=== PATIENT | female | born 1930 | race Caucasian/White ===

== ENCOUNTER 2016-02-08 11:58 | Emergency (ER) ==
[2016-02-08 12:06] VITALS: BP 119/61; TEMP 100.1; BMI 29.2
--- NOTE | 2016-02-08 12:18 | ED.PDOC ---
General ED Provider: Dr. HOLLY MACKEY-ER Chief Complaint: Cough Stated Complaint: shes got head congestion and cough Time Seen by Physician: 12:00 Mode of Arrival: Wheelchair Information Source: Patient Exam Limitations: No limitations Primary Care Provider: IGNACIA PATEL Nursing and Triage Documentation Reviewed and Agree: Yes Respiratory Complaint Exam - Respiratory Complaint/Exam Onset/Duration: 7 daus Symptoms Are: Still present Timing: Intermittent Initial Severity: Moderate Location: Nose, Chest Character: Reports: Productive cough Aggravating: Reports: URI Alleviating: Reports: None Associated Signs and Symptoms: Reports: URI, Nasal congestion. Denies: Rapid breathing, Dyspnea, Fever, Chills, Chest pain, Pleuritic chest pain, Wheezing, Hemoptysis, Dizziness, Calf pain, Calf swelling, Edema, Hoarseness, Sinus discomfort, Vomiting, Sore throat, Weight loss, Decreased oral intake, Increased thirst, Increased appetite History of Healthcare-Acquired Pneumonia: No Related Surgical History: Reports: None Pulmonary Embolism Risk Factors: None Pseudomonas Risk Factors: Reports: None Tuberculosis Risk Factors: Reports: None Status Asthmaticus Risk Factors: Reports: None Home Oxygen Use: No Recent Stress Test: No Recent Echo/LV Function: No Current Antibiotic Use: No Current Asthma Medication Use: No Respiratory Distress: None Inadequate Respiratory Effort: No Dysphagia Present: No Stridor Present: No JVD Present: No Accessory Muscle Use: No Retractions: Not Present Diminished Breath Sounds: No Sinus Tenderness: None Grunting Respirations: No Kussmaul Respirations: No Differential Diagnoses: Pneumonia, Bronchitis, Sinusitis, URI Review of Systems - Review Of Systems Constitutional: Reports: No symptoms Eyes: Reports: No symptoms Ears, Nose, Mouth, Throat: Reports: Nose discharge Respiratory: Reports: Cough Cardiac: Reports: No symptoms GI: Reports: No symptoms : Reports: No symptoms Musculoskeletal: Reports: No symptoms Skin: Reports: No symptoms Neurological: Reports: No symptoms Endocrine: Reports: No symptoms Hematologic/Lymphatic: Reports: No symptoms All Other Systems: Reviewed and Negative Past Medical History - Past Medical History Endocrine: Reports: Unknown Cardiovascular: Reports: Unknown Respiratory: Reports: Unknown Hematological: Reports: Unknown Gastrointestinal: Reports: Unknown Genitourinary: Reports: Unknown Neuro/Psych: Reports: Unknown Musculoskeletal: Reports: Unknown Cancer: Reports: Unknown Last Menstrual Period: n/a - Surgical History General Surgical History: Reports: Unknown - Family History Family History: Reports: Unknown - Social History Smoking Status: Former smoker Hx Substance Use: No Alcohol Screening: None Lives: With family - Immunizations Tetanus Shot up to Date: Yes Physical Exam - Physical Exam Appearance: Well-appearing, No pain distress, Well-nourished Eyes: HAYLEY, EOMI, Conjunctiva clear ENT: Rhinorrhea Respiratory: Rhonchi Cardiovascular: RRR GI/: Soft, Nontender, No masses, Bowel sounds normal, No Organomegaly Musculoskeletal: Normal strength, ROM intact, No edema, No calf tenderness Skin: Warm, Dry, Normal color Neurological: Sensation intact, Motor intact, Reflexes intact, Cranial nerves intact, Alert, Oriented Psychiatric: Affect appropriate, Mood appropriate Critical Care Note - Critical Care Note Total Time (mins): 0 Course - Course Orders, Labs, Meds: Lab Review 02/08/16 12:10 Influenza A (Rapid) Negative Influenza B (Rapid) Negative Orders Category Date Time Status FLU A & B RAPID TEST [RAPID FLU A/B] Stat LAB 02/08/16 12:10 Completed MOLECULAR GROUP A STREP Stat LAB 02/08/16 12:10 Results STREP SCREEN Stat LAB 02/08/16 12:10 Results Ceftriaxone Sodium [Rocephin] MEDS 02/08/16 12:28 Discontinued 1 gm IM ONCE STA Dexamethasone 4 mg/ml Inj [Decadron 4 mg/ml Sdv] MEDS 02/08/16 12:28 Discontinued 4 mg IM ONCE STA Lidocaine HCl/Pf [Lidocaine 1 % Amp 5 ml (Sutures)] MEDS 02/08/16 12:28 Discontinued 2.1 ml IM ONCE STA CXR [CHEST, 2 VIEWS PA & LAT] Stat RADS 02/08/16 12:10 Taken Medications Discontinued Medications Generic Name Dose Route Start Last Admin Trade Name Freq PRN Reason Stop Dose Admin Ceftriaxone Sodium 1 gm 02/08/16 12:28 Rocephin IM 02/08/16 12:29 ONCE STA Dexamethasone Sodium Phosphate 4 mg 02/08/16 12:28 Decadron 4 Mg/Ml Sdv IM 02/08/16 12:29 ONCE STA Lidocaine HCl 2.1 ml 02/08/16 12:28 Lidocaine 1 % Amp 5 Ml (Sutures) IM 02/08/16 12:29 ONCE STA Vital Signs: Temp Pulse Resp BP Pulse Ox 02/08/16 11:58 100.1 F H 96 H 20 119/61 92 L Departure - Departure Time of Disposition: 12:36 Disposition: HOME SELF-CARE Discharge Problem: Bronchitis Instructions: Acute Bronchitis (ED) Condition: Good Pt referred to PMD for follow-up: Yes Additional Instructions: AUGMENTIN 875MG BID X 10 DAYS--MEDROL DOSE PACK--TESSALON PERLES 200MG TID PRN COUGH 30 Allergies/Adverse Reactions: Allergies adhesive Adverse Reaction (Verified 02/08/16 12:08) clarithromycin [From Biaxin] Adverse Reaction (Verified 02/08/16 12:08) Home Medications: Ambulatory Orders Dicyclomine HCl [Bentyl] 10 mg PO TID 05/02/13 Diphenoxylate HCl/Atropine [Lomotil] 0.025 - 2.5 mg PO QID PRN 05/02/13 Lisinopril 10 mg PO BID 05/02/13 Lorazepam 1 mg PO TID 05/02/13 Meclizine HCl [Antivert] 12.5 mg PO PRN PRN 05/02/13 Omeprazole [Prilosec] 10 mg PO BEDTIME 05/02/13 Ondansetron HCl [Zofran] 4 mg PO Q6H PRN 05/02/13 Potassium Chloride [K-Dur] 10 meq PO DAILY #30 tablet.er 05/05/13 Spironolactone 25 mg PO DAILY #30 tablet 05/05/13 Calcium Carbonate [Calcium] 600 mg PO DAILY 05/27/14 Cholecalciferol (Vitamin D3) [Vitamin D3] 1,000 unit PO DAILY 05/27/14 Latanoprost [Xalatan] 1 drop OP BEDTIME 05/27/14 Multivitamin 1 cap PO DAILY 05/27/14 Pantoprazole Sodium [Protonix] 40 mg PO QDAC 05/27/14 Psyllium Husk [Metamucil] 0.52 gm PO DAILY 05/27/14 Zolpidem Tartrate [Ambien] 5 mg PO BEDTIME 05/27/14 Disposition Discussed With: Patient, Family
[2016-02-08] MEDS ORDERED: LIDOCAINE 1 % AMP 5 ML (SUTURES) IM STA (12:28)
[2016-02-08] MEDS ORDERED: DECADRON 4 MG/ML SDV IM STA (12:28)
[2016-02-08] MEDS ORDERED: ROCEPHIN IM STA (12:28)
[2016-02-08 12:33] LABS: FLU INTERNAL QC INTERNAL QC VALID; RAPID FLU A NEGATIVE (NEGATIVE); RAPID FLU B NEGATIVE (NEGATIVE)
--- NOTE | 2016-02-08 13:02 | DI ---
EXAM: PA and lateral views of the chest HISTORY: Cough COMPARISON: 01/13/2016 FINDINGS: The lungs are hyperexpanded. There is unchanged mild biapical pleural thickening. No focal consoli dation, pleural effusion or pneumothorax is seen. A right mid lung calcified granuloma is seen. The cardiomediastinal silhouette is within normal limits. There is calcified atherosclerotic plaque of the aorta. IMPRESSION: No acute cardiopulmonary findings. Hyperexpanded lungs. Evidence of prior granulomatous infection.
== END 2016-02-08 13:11 | disposition home or self-care (01) ==
LOC: ED 11:58
DX: J20.9 Acute bronchitis, unspecified (principal)
CPT/HCPCS: 87651; 87804; 87880; 96372; 99283

== ENCOUNTER 2016-04-22 10:41 | Outpatient (CLI) | payer OTHER ==
[2016-04-22] MEDS ORDERED: PROLIA SUBCUT STA (11:03)
[2016-04-22 11:16] VITALS: BP 118/65; TEMP 99.2
== END 2016-04-22 10:42 | disposition home or self-care (01) ==
LOC: OPMED 10:41
PROVIDERS: ATTEND Family Medicine
DX: M81.0 Age-related osteoporosis without current pathological fracture (principal)
CPT/HCPCS: 96372

== ENCOUNTER 2016-07-12 12:56 | Outpatient (CLI) ==
--- NOTE | 2016-07-14 10:29 | MAMMO ---
EXAM: Bilateral digital screening mammogram History: Screening Comparison: Bilateral mammogram 62,016 Findings: MLO and CC views of bilateral breasts demonstrate scattered fibroglandular breast parench yma. Stable benign bilateral breast calcifications. There is a focal asymmetry within the right philip ast central to the nipple posterior depth and seen only on the CC view. No suspicious microcalcific ations. Impression: Indeterminate right breast asymmetry seen only on the CC view. Recommend further evalua tion with spot compression views and a ML view and possible ultrasound. BIRADS 0
== END 2016-07-12 12:57 | disposition home or self-care (01) ==
LOC: RAD 12:56
PROVIDERS: ATTEND Family Medicine
DX: Z12.31 Encounter for screening mammogram for malignant neoplasm of breast (principal)

== ENCOUNTER 2016-07-21 09:25 | Outpatient (CLI) | payer OTHER ==
--- NOTE | 2016-07-21 10:43 | MAMMO ---
EXAM: Right digital diagnostic mammogram History: Right breast asymmetry. Comparison: Bilateral mammogram 07/12/2016 Findings: Right breast density is scattered. Additional spot compression views of the right breast reveal normal superimposed breast parenchyma. There are no suspicious masses and no abnormal micro calcifications. Impression: Benign mammogram. Return to routine screening mammography schedule. BIRADS 2
== END 2016-07-21 09:26 | disposition home or self-care (01) ==
LOC: RAD 09:25
PROVIDERS: ATTEND Family Medicine
DX: R92.2 Inconclusive mammogram (principal)

== ENCOUNTER 2016-08-27 12:03 | Emergency (ER) ==
[2016-08-27 12:11] VITALS: BP 146/75; TEMP 97.9
[2016-08-27] MEDS ORDERED: URO-JET MUCOUSMEMB STA (12:29)
--- NOTE | 2016-08-27 12:58 | ED.PDOC ---
General ED Provider: Dr. ARIELLE BRUNO JR Chief Complaint: Urinary Problem Stated Complaint: STATES HAS NOT BEEN URINIATING MUCH USUAL FOR PAST WEEK. LAST TIME OF URINATION WAS LAST NIGHT. SUPRAPUBIC PAIN. [ End ]97.9 59 18 96% 146/75 8/10 Time Seen by Physician: 12:57 Mode of Arrival: Wheelchair Information Source: Patient Exam Limitations: No limitations Primary Care Provider: IGNACIA PATEL Nursing and Triage Documentation Reviewed and Agree: No Review of Systems - Review Of Systems Constitutional: Reports: Malaise Eyes: Reports: No symptoms Ears, Nose, Mouth, Throat: Reports: No symptoms Respiratory: Reports: No symptoms Cardiac: Reports: No symptoms GI: Reports: No symptoms : Reports: Burning, Dysuria, Urgency Musculoskeletal: Reports: No symptoms Skin: Reports: No symptoms Neurological: Reports: No symptoms Endocrine: Reports: No symptoms Hematologic/Lymphatic: Reports: No symptoms All Other Systems: Other Past Medical History - Past Medical History Endocrine: Reports: Unknown Cardiovascular: Reports: Hypertension Respiratory: Reports: Unknown Hematological: Reports: Unknown Gastrointestinal: Reports: GERD Genitourinary: Reports: UTI Neuro/Psych: Reports: Unknown Musculoskeletal: Reports: Arthritis Cancer: Reports: Unknown Last Menstrual Period: NA - Surgical History General Surgical History: Reports: Hysterectomy, Appendectomy, Cholecystectomy, Orthopedic (FRACTURE BOTH FEET, RIGHT ANKLE FRACTURE), Other (CATARACT SURGERY BOTH EYES) - Family History Family History: Reports: Unknown - Social History Smoking Status: Former smoker Hx Substance Use: No Alcohol Screening: None Physical Exam - Physical Exam Appearance: Ill-appearing Ill-appearing: Mild Pain Distress: Mild Neck: Supple Respiratory: Airway patent GI/: Soft, Nontender Neurological: Sensation intact, Motor intact, Reflexes intact, Cranial nerves intact, Alert, Oriented Re-Evaluation - Re-Evaluation Time of Re-Evaluation: 14:57 (850+500CC) Status: Improved Critical Care Note - Critical Care Note Total Time (mins): 0 Course - Course Orders, Labs, Meds: Lab Review 08/27/16 12:40 Urine Color Dark Urine Clarity Cloudy Urine pH 7.0 Ur Specific [place] 1.020 Urine Protein 2+ Urine Glucose (UA) Negative Urine Ketones Negative Urine Blood 3+ Urine Nitrite Negative Urine Bilirubin Negative Urine Urobilinogen 0.2 Ur Leukocyte Esterase Trace Urine Microscopic RBC Tntc Urine Microscopic WBC Tntc Ur Squamous Epith Cells Not present Urine Bacteria 1+ Orders Category Date Time Status ED BLADDER SCAN .ONCE EMERGENCY 08/27/16 12:29 Active Robin [ED CATHETER INSERTION AND CARE] .ONCE EMERGENCY 08/27/16 12:29 Active URINALYSIS C & S IF INDICATED Stat LAB 08/27/16 12:40 Completed URINE CULTURE Routine LAB 08/27/16 13:29 Received Lidocaine HCl [Uro-Jet] MEDS 08/27/16 12:29 Discontinued 10 ml [id number] ONCE STA Sulfamethoxazole/Trimethoprim [Bactrim Ds 800/160 mg] MEDS 08/27/16 13:57 Discontinued 1 tab PO ONCE STA Medications Discontinued Medications Generic Name Dose Route Start Last Admin Trade Name Freq PRN Reason Stop Dose Admin Lidocaine HCl 10 ml 08/27/16 12:29 08/27/16 12:55 Uro-Jet [email or web address] 08/27/16 12:30 Not Given ONCE STA Trimethoprim/Sulfamethoxazole 1 tab 08/27/16 13:57 08/27/16 14:12 Bactrim Ds 800/160 Mg PO 08/27/16 13:58 1 tab ONCE STA Administration Vital Signs: Temp Pulse Resp BP Pulse Ox 08/27/16 12:07 97.9 F 59 L 18 146/75 H 96 Departure - Departure Time of Disposition: 15:00 Disposition: HOME SELF-CARE Discharge Problem: Urinary tract infectious disease Instructions: Urinary Tract Infection in Women (ED) Condition: Good Pt referred to PMD for follow-up: Yes Additional Instructions: RETURN TOMORROW FOR REMOVAL OF CATHETER ANTIBIOTIC UNTIL GONE BACTRIM ANTIBIOTIC- DO NOT TAKE POTASSIUM WITH BACTRIM(HOLD POTASSIUM EACH DAY YOU TAKE BACTRIM) DRINK PLENTY OF FLUIDS TYLENOL FOR PAIN PYRIDIUM FOR BLADDER DISCOMFORT Allergies/Adverse Reactions: Allergies adhesive Adverse Reaction (Verified 08/27/16 12:06) clarithromycin [From Biaxin] Adverse Reaction (Verified 08/27/16 12:06) Latex, Natural Rubber Adverse Reaction (Verified 08/27/16 12:06) Home Medications: Ambulatory Orders Lisinopril 10 mg PO BID 05/02/13 Lorazepam 1 mg PO TID 05/02/13 Meclizine HCl [Antivert] 12.5 mg PO PRN PRN 05/02/13 Ondansetron HCl [Zofran] 4 mg PO Q6H PRN 05/02/13 Potassium Chloride [K-Dur] 10 meq PO DAILY #30 tablet.er 05/05/13 Spironolactone 25 mg PO DAILY #30 tablet 05/05/13 Calcium Carbonate [Calcium] 600 mg PO DAILY 05/27/14 Cholecalciferol (Vitamin D3) [Vitamin D3] 1,000 unit PO DAILY 05/27/14 Latanoprost [Xalatan] 1 drop OP BEDTIME 05/27/14 Multivitamin 1 cap PO DAILY 05/27/14 Pantoprazole Sodium [Protonix] 40 mg PO QDAC 05/27/14 Fluoxetine HCl [Prozac] 20 mg PO DAILY 08/27/16 Gabapentin 200 mg PO DAILY 08/27/16 Gabapentin 300 mg PO BEDTIME 08/27/16 Metoprolol Tartrate [Lopressor] 25 mg PO BID 08/27/16 Phenazopyridine HCl [Pyridium] 200 mg PO TID PRN #10 tablet 08/27/16 Sulfamethoxazole/Trimethoprim [Bactrim Ds 800/160 mg] 1 tab PO Q12HR #14 tablet 08/27/16
[2016-08-27 13:11] LABS: BILIRUBIN,URINE Negative (NEGATIVE); KETONES,URINE Negative (NEGATIVE); LEUKOCYTE ESTERASE ,URINE Trace (NEGATIVE); NITRITE,URINE Negative (NEGATIVE); PROTEIN,URINE 2+ (NEGATIVE); URINE, BLOOD 3+ (NEGATIVE)
[2016-08-27 13:15] LABS: ADD URINE MICROSCOPIC YES
[2016-08-27 13:29] LABS: BACTERIA,URINE 1+ (NOT PRESENT)
[2016-08-27] MEDS ORDERED: BACTRIM DS 800/160 MG PO STA (13:57)
== END 2016-08-27 15:27 | disposition home or self-care (01) ==
LOC: ED 12:03
DX: N39.0 Urinary tract infection, site not specified (principal); Z79.899 Other long term (current) drug therapy; M25.512 Pain in left shoulder
CPT/HCPCS: 81001; 87086; 87186; 99282

== ENCOUNTER 2016-08-27 15:24 | Outpatient (CLI) ==
--- NOTE | 2016-08-27 15:48 | DI ---
EXAM: Left shoulder three view HISTORY: Chronic shoulder pain COMPARISON: None FINDINGS: No fracture or dislocation. Mild osteoarthritis acromioclavicular glenohumeral joints wi th joint space narrowing osteophyte formation. High-riding humeral head. No focal soft tissue abnor mality. IMPERSSION: 1. No fracture or dislocation. 2. Mild osteoarthritis. 3. High-riding humeral head, suggesting rotator cuff tear.
== END 2016-08-27 15:25 | disposition home or self-care (01) ==
LOC: RAD 15:24
PROVIDERS: ATTEND Family Medicine
DX: M25.512 Pain in left shoulder (principal)

== ENCOUNTER 2016-08-28 10:49 | Outpatient (CLI) ==
[2016-08-28 11:14] VITALS: BP 102/55; TEMP 98.3
== END 2016-08-28 10:50 | disposition home or self-care (01) ==
LOC: OUTPT 10:49
PROVIDERS: ATTEND Emergency Medicine
DX: N39.0 Urinary tract infection, site not specified (principal); R33.9 Retention of urine, unspecified
CPT/HCPCS: 99211

== ENCOUNTER 2016-09-08 11:02 | Outpatient (CLI) ==
--- NOTE | 2016-09-08 11:48 | CT ---
EXAM: CT of the head without contrast History: Gait difficulty and trauma. Comparison: Head CT 06/29/2014 Technique: Multiplanar CT images through the head were obtained without the administration of IV co ntrast Findings: Visualized paranasal sinuses and mastoid air cells are clear in general. No acute calvar ial abnormalities. Intracranially the ventricular and cisternal spaces are normal in size, shape and configuration for a patient of this age. No dominant mass or midline shift. No hydrocephalous. No acute intracrania l hemorrhage or abnormal extraaxial fluid collections. Impression: No acute intracranial process.
== END 2016-09-08 11:03 | disposition home or self-care (01) ==
LOC: RAD 11:02
PROVIDERS: ATTEND Family Medicine
DX: R26.9 Unspecified abnormalities of gait and mobility (principal); W19.XXXA Unspecified fall, initial encounter

== ENCOUNTER 2016-09-25 13:51 | Outpatient (CLI) | payer OTHER | END 2016-09-25 13:52 | disposition home or self-care (01) | LOC: AMBL 13:51 | PROVIDERS: ATTEND Family Medicine | DX: S09.90XA Unspecified injury of head, initial encounter (principal); W19.XXXA Unspecified fall, initial encounter ==

== ENCOUNTER 2016-11-04 10:51 | Outpatient (CLI) ==
[2016-11-04] MEDS ORDERED: PROLIA SUBCUT STA (11:25)
[2016-11-04 11:29] VITALS: BP 116/57; TEMP 98.2
== END 2016-11-04 10:52 | disposition home or self-care (01) ==
LOC: OPMED 10:51
PROVIDERS: ATTEND Family Medicine
DX: M81.0 Age-related osteoporosis without current pathological fracture (principal)
CPT/HCPCS: 96372

== ENCOUNTER 2017-05-05 13:00 | Outpatient (RCR) ==
--- NOTE | 2017-04-20 11:35 | RS.OPPTEV2 ---
Date of Note: 04/19/17 Visit #: 1 Date of Evaluation: 04/19/17 Payer Source: MEDICARE Surgery Performed?: No Treatment Diagnosis: OA, gait difficulty, falls History of Condition/Mechanism of Injury:: pt states that she has had a long history of OA and falls, most recent fall was this winter. Prior Level of Function.....Patient was independent with: ADL's, Self Care, Work /Vocation, Ambulation/Mobility, Community Integration/Access Level of Function: pt states she amb with quad cane or rwx Functional Limitations: ADL's, Carrying, Standing, Bending, Squatting, Ambulation, Community Access/Integration Current Subjective/complaints:: pt states that she feels that her LE are weak and decreased balance with pain from OA. Treatment Side (optional): Bilateral *Precautions: fall precautions Medical History Medical History: Hypertension, Diabetes, Arthritis Surgical History Comments:: rigt ankle fracture with stabilization, R hip repair Smoking Status: Former smoker Hx Home Medications: besifloxacin, calcium car-cholecalciferol, carboxymethylcellulose, durezol, lomotil, prozac, lasix, neurontin, xalatan, lisinopril, lorazepam, meclizine, lopressor, multivitamin, zofran, protonix, k dur, spironolactone, triamcinolone cream. Patient's Goals: be able to walk better and not fall. Pain Assessment - Pain Description Pain Location: B knees and B shlds Pain Description: Aching Current Pain Intensity: 5 Functional Outcome Measure UE Functional Index: 9 (68%) - G Codes & Severity Modifier G Codes & Modifier: mobility current CL. mobility goal CJ Source of G Code score: tinetti balance assessment Observation - Observation Inspection: pt transferred sit to stand with CGA with more than 1 attempt. Posture: Forward Head, Rounded Shoulders, Increased Thoracic Kyphosis, Decreased Lumbar Lordosis Handedness: Right Gait - Gait Pattern General Gait Pattern Observation: Wide Based Gait, Crouched Gait, Decrease Stride Lngth (R), Decrease Stride Lngth (L) Gait Comments: pt amb with flexed posture, decreased step length as well as flexed knees with wide INES General Range of Motion: BLE WFL's. BUE shlds limited: L shld flex 135, abd 100, R shld flex 130, abd 120 otherwise WFL's Muscle Strength: BLE hip flex 4-/5, knee flex/ext 4-/5, ankle DF/PF 4/5. BUE shld flex 3/5, elbow flex/ext 4/5 Palpation Palpation Findings: Tenderness Comments:: B shlds as well as upper trap. BLE hamsting tightness L worse than R Sensation - Sensation Right Upper Extremity: Intact/Normal Left Upper Extremity: Intact/Normal Right Lower Extremity: Intact/Normal Left Lower Extremity: Intact/Normal Balance - Sitting Balance Static Sitting Balance: Normal Dynamic Sitting Balance: Good - Standing Balance Static Standing Balance: Fair Dynamic Standing Balance: Poor - Comments Balance Assessment Comments: tinetti score 11/04 Interventions - Exercise/Activities/Manual Therapy Exercises/Activities: pt performed BLE AP, QS, hamstring stretch, seated hip flex, LAQ, isometric hip add. Manual Therapy: Na HOME EXERCISE PROGRAM: pt given written HEP including AP, QS, hamstring stretch , LAQ, seated hip flex, isometric hip add. - Charges Timed Code Treatment Minutes: 54 Total Treatment Time: 62 Procedures billed for this date of service:: eval med EVALUATION COMPLEXITY LEVEL EVALUATION COMPLEXITY LEVEL: HISTORY: Medium (OA, DM, HTN, age), EXAM OF BODY SYSTEMS: Medium (posture, gait, balance, strength, pain), CLINICAL PRESENTATION : Medium (evolving), CLINICAL DECISION MAKING: Medium Assessment Assessment: pt presents with decreased strength, balance as well as transfer and gait ability. Feel pt would benefit from skilled PT for therex for LE strengthening, balance activities as well as transfer/gait training to improve functional mobility as well as decrease falls. Patient Education: Home Exercise Program, Education of Plan of Care Rehab Potential: Good Short Term Goals Goal #1: pt transfer sit to/from stand independently Goal to be met by: 05/10/17 Goal #2: pt amb in PT dept with rwx with no LOB with improved posture. Goal to be met by: 05/10/17 Goal #3: pt with improved dyn stand balance as noted by tinetti score Goal to be met by: 05/10/17 Goal #4: pt rate pain <5 with activity Goal to be met by: 05/10/17 Traffic Or System Dispatcher Goals Goal #1: pt amb community distances with AD with no LOB SBA Goal to be met by: 05/31/17 Goal #2: Improved strength BLE 4 to 4+/5 independent with HEP Goal to be met by: 05/31/17 Goal #3: Improved dyn stand balance as noted by tinetii score of Goal to be met by: 05/31/17 Goal #4: pt rate pain <2 with activity Goal to be met by: 05/31/17 Plan - Treatment to be Provided Procedures: Therapeutic Exercises, Therapeutic Activity, Gait Training, Neuromuscular Rehab, Patient Education Modalities: No Modalities - Treatment Plan Frequency: 3 X week Duration: 6 weeks ORDER # VISITS AND/OR THROUGH DATE: 05/31/17 - Treatment Code (1) Osteoarthritis Code(s): M19.90 - UNSPECIFIED OSTEOARTHRITIS, UNSPECIFIED SITE Qualifiers: Osteoarthritis location: unspecified site Osteoarthritis type: unspecified Qualified Code(s): M19.90 - Unspecified osteoarthritis, unspecified site (2) Falls Code(s): W19.XXXA - UNSPECIFIED FALL, INITIAL ENCOUNTER Qualifiers: Encounter type: initial encounter Qualified Code(s): W19.XXXA - Unspecified fall, initial encounter (3) Gait difficulty Code(s): R26.9 - UNSPECIFIED ABNORMALITIES OF GAIT AND MOBILITY
--- NOTE | 2017-04-21 16:33 | RS.OPPTDN ---
Subjective Date of Note: 04/21/17 Visit #: 2 Date of Evaluation: 04/19/17 Payer Source: MEDICARE Treatment Diagnosis: OA, gait difficulty, falls Current Subjective/complaints:: pt states she was a little sore after eval visit. *Precautions: fall precautions Pain Assessment - Pain Description Pain Location: B knees L worse than R Pain Description: Aching Current Pain Intensity: 6 on L, 4 on R Balance System Training - Balance Training Comments Worked on dyn stand balance during gait Interventions - Exercise/Activities/Manual Therapy Exercises/Activities: pt performed BLE AP, QS, GS,, SAQ, hip abd/add, seated hip flex x 10 reps. BUE shld flex and press ups with cane x 10 reps. pt amb with quad cane x 50ft with cues for sequencing, posture as well as frequent reminders for placement of cane to prevent tripping. pt amb 100ft with rwx with improved posture with verbal cues to keep R foot from ext rot and catching toe on rwx. Manual Therapy: n/a HOME EXERCISE PROGRAM: pt given written HEP including AP, QS, hamstring stretch , LAQ, seated hip flex, isometric hip add. - Charges Timed Code Treatment Minutes: 42 Total Treatment Time: 55 Procedures billed for this date of service:: ex 2, gait Assessment: pt progressing with improved endurance tolerating increased ex this visit as well as improved posture with gait. Patient Education: Home Exercise Program, Education of Plan of Care Patient demonstrates compliance with HEP?: Yes Short Term Goals Goal #1: pt transfer sit to/from stand independently Goal to be met by: 05/10/17 Progress towards Goal:: Progressing Goal #2: pt amb in PT dept with rwx with no LOB with improved posture. Goal to be met by: 05/10/17 Progress towards Goal:: Progressing Goal #3: pt with improved dyn stand balance as noted by tinetti score Goal to be met by: 05/10/17 Progress towards Goal:: No Change Goal #4: pt rate pain <5 with activity Goal to be met by: 05/10/17 Penitentiary Goals Goal #1: pt amb community distances with AD with no LOB SBA Goal to be met by: 05/31/17 Goal #2: Improved strength BLE 4 to 4+/5 independent with HEP Goal to be met by: 05/31/17 Progress towards goal: Progressing Goal #3: Improved dyn stand balance as noted by tinetii score of 22/28 Goal to be met by: 05/31/17 Goal #4: pt rate pain <2 with activity Goal to be met by: 05/31/17 Plan PLAN OF CARE EXPIRES ON:: 05/31/17 ORDER # VISITS AND/OR THROUGH DATE: 05/31/17 PLAN: continue to progress with dyn stand balance activities as well as LE strengthening.
--- NOTE | 2017-04-26 13:59 | RS.CXNS ---
Date of scheduled appointment: 04/26/17 Type: Cancel (Patient called to cancel appointment today. States she is sick.)
--- NOTE | 2017-04-29 08:55 | RS.OPPTDN ---
Subjective Date of Note: 04/28/17 Visit #: 3 Date of Evaluation: 04/19/17 Payer Source: MEDICARE Treatment Diagnosis: OA, gait difficulty, falls Current Subjective/complaints:: Patient reports she is walking better and using quad cane in community. States she is working on basic HEP. *Precautions: fall precautions Pain Assessment - Pain Description Pain Location: lowback and shoulders, left > right Current Pain Intensity: mild to mod left shoulder pain Interventions - Exercise/Activities/Manual Therapy Exercises/Activities: In sitting, AP, 1 1/2# for SAQ and hip flexion, 2s/10reps each. QS, GS, SAQ, assist SLR, assist hip abd/add, all 2s/10reps. 1 1/2# for alt hip flexion. Isometric hip add and isometric ankle inversion, both with ball , 2s/10reps each. Overhead shoulder flexion and chest press ups with cane x 10 reps. In sitting again for wand for shoulder flexion to shoulder height. Gait training in hallway with quad cane. Patient assisted down ramp to car in parking lot and given several verbal cues for safety. pt amb with quad cane x 50ft with cues for sequencing, posture as well as frequent reminders for placement of cane to prevent tripping. pt amb 100ft with rwx with improved posture with verbal cues to keep R foot from ext rot and catching toe on rwx. Total minutes of Exercise: EX 30mins/gait training 10mins Manual Therapy: n/a HOME EXERCISE PROGRAM: pt given written HEP including AP, QS, hamstring stretch , LAQ, seated hip flex, isometric hip add. - Charges Timed Code Treatment Minutes: 40mins Total Treatment Time: 45mins Procedures billed for this date of service:: EX2, GT Assessment: Patient motivated to work on HEP and progress with safe ambulation and functional moblity. Patient Education: Home Exercise Program, Home Safety, Activity Modification Patient demonstrates compliance with HEP?: Yes Short Term Goals Goal #1: pt transfer sit to/from stand independently Goal to be met by: 05/10/17 Progress towards Goal:: Met Goal #2: pt amb in PT dept with rwx with no LOB with improved posture. Goal to be met by: 05/10/17 Progress towards Goal:: Progressing Goal #3: pt with improved dyn stand balance as noted by tinetti score Goal to be met by: 05/10/17 Progress towards Goal:: No Change Goal #4: pt rate pain <5 with activity Goal to be met by: 05/10/17 Progress towards Goal:: Progressing Tooth Cutter Goals Goal #1: pt amb community distances with AD with no LOB SBA Goal to be met by: 05/31/17 Goal #2: Improved strength BLE 4 to 4+/5 independent with HEP Goal to be met by: 05/31/17 Progress towards goal: Progressing Goal #3: Improved dyn stand balance as noted by tinetii score of Goal to be met by: 05/31/17 Goal #4: pt rate pain <2 with activity Goal to be met by: 05/31/17 Plan PLAN OF CARE EXPIRES ON:: 05/31/17 ORDER # VISITS AND/OR THROUGH DATE: 05/31/17 PLAN: Progress with strengthening and balance activities to improve safety with functional mobility and ambulation.
--- NOTE | 2017-05-03 15:13 | RS.OPPTDN ---
Subjective Date of Note: 05/03/17 Visit #: 4 Date of Evaluation: 04/19/17 Payer Source: MEDICARE Treatment Diagnosis: OA, gait difficulty, falls Current Subjective/complaints:: Patient reports she has not had any falls since starting therapy. States she feels she is getting stronger and is able to do more activities in her home. *Precautions: fall precautions Pain Assessment - Pain Description Other Comments regarding Pain:: Patient reports pain in her left shoulder joint into lateral upper arm Interventions - Exercise/Activities/Manual Therapy Exercises/Activities: In sitting, Shoulder flexion with cane, AP, increased to 3 # for SAQ and hip flexion, 2s/10reps each. QS, GS, SAQ 3#, SLR, all 2s/10reps. Increased to 3# for alt hip flexion. Isometric hip add and isometric ankle inversion, both with ball, 2s/10reps each. Red theraband for ankle df and ham curls, 2s/10reps. Standing mini-squats, toe-ups, and marching. Gait training in hallway with quad cane, verbal cues for safety. Patient assisted to car in parking lot with frequent verbal cues for safety. pt amb with quad cane x 50ft with cues for sequencing, posture as well as frequent reminders for placement of cane to prevent tripping. pt amb 100ft with rwx with improved posture with verbal cues to keep R foot from ext rot and catching toe on rwx. Total minutes of Exercise: EX 35mins, GT 8mins Manual Therapy: n/a HOME EXERCISE PROGRAM: pt given written HEP including AP, QS, hamstring stretch , LAQ, seated hip flex, isometric hip add. - Charges Timed Code Treatment Minutes: 43mins Total Treatment Time: 45mins Procedures billed for this date of service:: EX2, GT Assessment: Patient reporting improvement in functional activity level. Patient Education: Home Exercise Program, Home Safety, Activity Modification Patient demonstrates compliance with HEP?: Yes Short Term Goals Goal #1: pt transfer sit to/from stand independently Goal to be met by: 05/10/17 Progress towards Goal:: Met Goal #2: pt amb in PT dept with rwx with no LOB with improved posture. Goal to be met by: 05/10/17 Comments:: Walking with quad cane today. Goal #3: pt with improved dyn stand balance as noted by tinetti score 14/28 Goal to be met by: 05/10/17 Progress towards Goal:: No Change Goal #4: pt rate pain <5 with activity Goal to be met by: 05/10/17 Progress towards Goal:: Partially Met Care Home Goals Goal #1: pt amb community distances with AD with no LOB SBA Goal to be met by: 05/31/17 Goal #2: Improved strength BLE 4 to 4+/5 independent with HEP Goal to be met by: 05/31/17 Progress towards goal: Progressing Goal #3: Improved dyn stand balance as noted by tinetii score of Goal to be met by: 05/31/17 Goal #4: pt rate pain <2 with activity Goal to be met by: 05/31/17 Plan PLAN OF CARE EXPIRES ON:: 05/31/17 ORDER # VISITS AND/OR THROUGH DATE: 05/31/17 PLAN: Progress exercise and balance activities to increase safety and functional activity level.
--- NOTE | 2017-05-05 16:21 | RS.OPPTDN ---
Subjective Date of Note: 05/05/17 Visit #: 5 Date of Evaluation: 04/19/17 Payer Source: MEDICARE Treatment Diagnosis: OA, gait difficulty, falls Current Subjective/complaints:: pt states she is having increased discomfort in L shld, requested to try moist hot pack. *Precautions: fall precautions Pain Assessment - Pain Description Pain Location: L shld Pain Description: Aching Current Pain Intensity: 4 - Heat/Cryotherapy Treatment: Hot Pack (L shld) Interventions - Exercise/Activities/Manual Therapy Exercises/Activities: pt performed BLE LAQ, hip flex with 3# wt, DF/PF with red tband, isometric hip add 2 sets of 10 reps, standing short squats, heel raises, marching 2 sets of 10 reps. pulleys for B shld flex. pt rode bike x 2 mins. pt amb 100ft with quad cane with CGA with LLE ext rot, requires cues for posture. Total minutes of Exercise: 43 Manual Therapy: n/a HOME EXERCISE PROGRAM: pt given written HEP including AP, QS, hamstring stretch , LAQ, seated hip flex, isometric hip add. - Charges Timed Code Treatment Minutes: 46 Total Treatment Time: 60 Procedures billed for this date of service:: exercise 3, hot pack to L shld Assessment: pt progressing with improved gait safety as well as increased tolerance for activity. pt continues with pain and decreased ROM L shld. Patient Education: Home Exercise Program, Activity Modification, Education of Plan of Care Patient demonstrates compliance with HEP?: Yes Short Term Goals Goal #1: pt transfer sit to/from stand independently Goal to be met by: 05/10/17 Progress towards Goal:: Met Goal #2: pt amb in PT dept with rwx with no LOB with improved posture. Goal to be met by: 05/10/17 Progress towards Goal:: Progressing Goal #3: pt with improved dyn stand balance as noted by tinetti score Goal to be met by: 05/10/17 Progress towards Goal:: No Change Goal #4: pt rate pain <5 with activity Goal to be met by: 05/10/17 Progress towards Goal:: Partially Met Meteorologist Liaison Goals Goal #1: pt amb community distances with AD with no LOB SBA Goal to be met by: 05/31/17 Goal #2: Improved strength BLE 4 to 4+/5 independent with HEP Goal to be met by: 05/31/17 Progress towards goal: Progressing Goal #3: Improved dyn stand balance as noted by tinetii score of Goal to be met by: 05/31/17 Progress towards goal: Progressing Goal #4: pt rate pain <2 with activity Goal to be met by: 05/31/17 Plan PLAN OF CARE EXPIRES ON:: 05/31/17 ORDER # VISITS AND/OR THROUGH DATE: 05/31/17 PLAN: continue to progress with dyn stand balance activities and gait training
== END 2017-05-07 ==
PROVIDERS: ATTEND Family Medicine
DX: M15.9 Polyosteoarthritis, unspecified (principal); M85.80 Other specified disorders of bone density and structure, unspecified site; R26.9 Unspecified abnormalities of gait and mobility; M79.671 Pain in right foot; M79.672 Pain in left foot; L84 Corns and callosities; M20.41 Other hammer toe(s) (acquired), right foot; M20.42 Other hammer toe(s) (acquired), left foot; M25.569 Pain in unspecified knee; W19.XXXA Unspecified fall, initial encounter

== ENCOUNTER 2017-05-19 13:00 | Outpatient (RCR) ==
--- NOTE | 2017-05-10 11:22 | RS.CXNS ---
Date of scheduled appointment: 05/10/17 Type: Cancel (Patient calls to cancel her appointment today. States she is getting her drivers license. She states she will attend tomorrow.)
--- NOTE | 2017-05-11 16:03 | RS.OPPTDN ---
Subjective Date of Note: 05/11/17 Visit #: 6 Date of Evaluation: 04/19/17 Payer Source: MEDICARE Treatment Diagnosis: OA, gait difficulty, falls Current Subjective/complaints:: Patient reports she is getting stronger. States she continues to have difficulty getting her legs into her car. States she continues to use quad cane to walk in community. Reports a flwi-up fo bilateral knee pain, with right worse than left today. *Precautions: fall precautions Pain Assessment - Pain Description Pain Location: Bilateral knees Current Pain Intensity: mod+ Interventions - Exercise/Activities/Manual Therapy Exercises/Activities: Assisted stretching of the bilateral hamstrings and heel cords. Assisted SKTC. Red tband for ankle df, hip add, and hip abd in hook-lying , 2s/10reps eaach. Isometric hip add and isometric ankle inversion, both with ball, 2s/10reps. SAQ no weight due to knee pain. Alt hip flexion with 3#. Isometric trunk rotation in neutral. Pelvic tilts. NEURO: In standing, short squats, heel raises, and marching. Sit to/from stand. worked on static stand balance with light resistance. Ended with stationary bike x 5mins(not in direct time). pt amb 100ft with quad cane with CGA with LLE ext rot, requires cues for posture. Total minutes of Exercise: EX 30mins/35mins, NEURO 10mins Manual Therapy: n/a HOME EXERCISE PROGRAM: pt given written HEP including AP, QS, hamstring stretch , LAQ, seated hip flex, isometric hip add. - Charges Timed Code Treatment Minutes: 40mins Total Treatment Time: 50mins Procedures billed for this date of service:: EX2, NEURO Assessment: Patient progressing with standing balance. Patient Education: Home Exercise Program, Home Safety, Activity Modification Patient demonstrates compliance with HEP?: Yes Short Term Goals Goal #1: pt transfer sit to/from stand independently Goal to be met by: 05/10/17 Progress towards Goal:: Met Goal #2: pt amb in PT dept with rwx with no LOB with improved posture. Goal to be met by: 05/10/17 Progress towards Goal:: Met Comments:: Consistently using cane Goal #3: pt with improved dyn stand balance as noted by tinetti score 14/28 Goal to be met by: 05/10/17 Progress towards Goal:: Progressing Goal #4: pt rate pain <5 with activity Goal to be met by: 05/10/17 Progress towards Goal:: Not Met (Bilateral knee pain limiting patient today) Mds Nurse Goals Goal #1: pt amb community distances with AD with no LOB SBA Goal to be met by: 05/31/17 Progress towards goal: Progressing Goal #2: Improved strength BLE 4 to 4+/5 independent with HEP Goal to be met by: 05/31/17 Progress towards goal: Progressing Goal #3: Improved dyn stand balance as noted by tinetii score of Goal to be met by: 05/31/17 Progress towards goal: Progressing Goal #4: pt rate pain <2 with activity Goal to be met by: 05/31/17 Plan PLAN OF CARE EXPIRES ON:: 05/31/17 ORDER # VISITS AND/OR THROUGH DATE: 05/31/17 PLAN: Progress with strengthening exercise and balance activity, progressing toward safe functional mobility and ambulation.
--- NOTE | 2017-05-17 15:01 | RS.OPPTDN ---
Subjective Date of Note: 05/17/17 Visit #: 7 Date of Evaluation: 04/19/17 Payer Source: MEDICARE Treatment Diagnosis: OA, gait difficulty, falls Current Subjective/complaints:: Patient says exercises seem to be helping, but also says that she has a history of pain to the hips, knees, and ankles limiting her walking and full pain relief. She says she does try to work on HEP , but has a lot of difficulty with getting in/out of her car. *Precautions: fall precautions Interventions - Exercise/Activities/Manual Therapy Exercises/Activities: Assisted stretching of the bilateral hamstrings and heel cords. Assisted SKTC. Red tband for ankle df, hip add, and hip abd in hook-lying , 2s/10reps eaach. Isometric hip add and isometric ankle inversion, both with ball, 2s/10reps. Bilateral SAQ with ball between ankles 2x10. Alt hip flexion with 3#. Hip abd in hooklying with red tband 2x10 each. Isometric trunk rotation in neutral. Pelvic tilts. NEURO: In standing, short squats, heel raises , side stepping, and marching. Sit to/from stand. worked on static stand balance with light resistance. Ended with stationary bike increased to 6mins( not in direct time). pt amb 100ft with quad cane with CGA with LLE ext rot, requires cues for posture. Total minutes of Exercise: 50 Manual Therapy: n/a HOME EXERCISE PROGRAM: pt given written HEP including AP, QS, hamstring stretch , LAQ, seated hip flex, isometric hip add. - Charges Timed Code Treatment Minutes: 50 Total Treatment Time: 50 Procedures billed for this date of service:: neuro1, ex2 Assessment: Patient verbalizing improved pain and strength, but still has challenges with amb using NBQC requiring intermittent prompting to keep AD closer to self and also cues for sequencing. She also has difficulty with getting in/out of her car. Assisted her to her vehicle and instructed her on turning and sitting into her seat first, then turning legs into her car as it sits quite low, has no handles for grabbing and steering wheel is close to legs. Patient Education: Education of diagnosis, Body/Joint mechanics, Home Safety Patient demonstrates compliance with HEP?: Yes Short Term Goals Goal #1: pt transfer sit to/from stand independently Goal to be met by: 05/10/17 Progress towards Goal:: Met Goal #2: pt amb in PT dept with rwx with no LOB with improved posture. Goal to be met by: 05/10/17 Progress towards Goal:: Met Goal #3: pt with improved dyn stand balance as noted by tinetti score Goal to be met by: 05/10/17 Progress towards Goal:: Progressing Goal #4: pt rate pain <5 with activity Goal to be met by: 05/10/17 Progress towards Goal:: Not Met (Bilateral knee pain limiting patient today) Fpc Goals Goal #1: pt amb community distances with AD with no LOB SBA Goal to be met by: 05/31/17 Progress towards goal: Progressing Goal #2: Improved strength BLE 4 to 4+/5 independent with HEP Goal to be met by: 05/31/17 Progress towards goal: Progressing Goal #3: Improved dyn stand balance as noted by tinetii score of Goal to be met by: 05/31/17 Progress towards goal: Progressing Goal #4: pt rate pain <2 with activity Goal to be met by: 05/31/17 Plan PLAN OF CARE EXPIRES ON:: 05/31/17 ORDER # VISITS AND/OR THROUGH DATE: 05/31/17 PLAN: continue BIW for therex to build strength and bal
--- NOTE | 2017-05-19 14:44 | RS.OPPTDN ---
Subjective Date of Note: 05/19/17 Visit #: 10 Date of Evaluation: 04/19/17 Payer Source: MEDICARE Treatment Diagnosis: OA, gait difficulty, falls Current Subjective/complaints:: Patient says she feels she has improved with therapy. She says she still gets unbalanced and takes a few times getting up out of the chair/couch, but when she stands she feels she is ok to walk. Reports she does not return to the MD until July. *Precautions: fall precautions Interventions - Exercise/Activities/Manual Therapy Exercises/Activities: Assisted stretching of the bilateral hamstrings and heel cords. Assisted SKTC. Progressed to green tband for ankle df, hip add, and hip abd in hook-lying, 2s/10reps eaach. Isometric hip add and isometric ankle inversion, both with ball, 2s/10reps. Bilateral SAQ with ball between ankles 2x10, SAQ with 3# each 2x10. Alt hip flexion with 3#. Hip abd in hooklying progressed to green tband 2x10 each. Isometric trunk rotation in neutral. Pelvic tilts. NEURO: In standing, short squats, heel raises, side stepping, and marching. Tinettis reassessment performed for 10th visit. pt amb 100ft with quad cane with CGA with LLE ext rot, requires cues for posture. Total minutes of Exercise: 47 Manual Therapy: n/a HOME EXERCISE PROGRAM: pt given written HEP including AP, QS, hamstring stretch , LAQ, seated hip flex, isometric hip add. - Objective Findings Observations,measurements,etc.: Tinetti score 12/28 (Eval was 9/28). Patient remains with difficulty sit to stand requiring CGA to min A at times or else it takes patient x 3 to stand unassisted. Also, getting in/out of car slightly better with placing her bottom in first. She remains with some inconsistency with beginning amb and appears slightly unsteady navigating her QC. - Charges Timed Code Treatment Minutes: 47 Total Treatment Time: 47 Procedures billed for this date of service:: ex2, neuro1 Assessment: Some improvement with Tinetti's and per subjective reports may justify continuing therapy to achieve further bal and strength. Bilateral LE MMT 4+/5 for hips/knees/ankles 4-/5. Patient Education: Education of Plan of Care Patient demonstrates compliance with HEP?: Yes Short Term Goals Goal #1: pt transfer sit to/from stand independently Goal to be met by: 05/10/17 Progress towards Goal:: Partially Met (Requires assistance this week or patient is able to do, but x 3 attempts) Goal #2: pt amb in PT dept with rwx with no LOB with improved posture. Goal to be met by: 05/10/17 Progress towards Goal:: Met Comments:: patient amb with NBQC Goal #3: pt with improved dyn stand balance as noted by tinetti score Goal to be met by: 05/10/17 Progress towards Goal:: Progressing Comments:: 02/03 today Goal #4: pt rate pain <5 with activity Goal to be met by: 05/10/17 Progress towards Goal:: Progressing (patient intermittently limited by bilateral knee pain) Snf Goals Goal #1: pt amb community distances with AD with no LOB SBA Goal to be met by: 05/31/17 Progress towards goal: Partially Met Comments: no LoB as of present Goal #2: Improved strength BLE 4 to 4+/5 independent with HEP Goal to be met by: 05/31/17 Progress towards goal: Met Goal #3: Improved dyn stand balance as noted by tinetii score of Goal to be met by: 05/31/17 Progress towards goal: Progressing Goal #4: pt rate pain <2 with activity Goal to be met by: 05/31/17 Plan PLAN OF CARE EXPIRES ON:: 05/31/17 ORDER # VISITS AND/OR THROUGH DATE: 05/31/17 PLAN: Patient has been reassessed and may benefit from completing 2 more weeks of PT
--- NOTE | 2017-06-06 13:15 | RS.OPPTDC ---
Date of Discharge: 05/19/17 Date of Evaluation: 04/19/17 Number of Visits: 8 Treatment Diagnosis: OA, gait difficulty, falls Current Level of Function: pt demonstrates good base of support and able to maintain balance well. pt continues to feel unsteady at times when standing from seated position. Current Complaints/Gains: pt states she feels therapy has helped her gain strength and balance but still feels unsteady at times. pt decided not to continue her final 2 visits. Functional Outcome Measure Tinetti: 12 - G Codes & Severity Modifier G Codes & Modifier: mobility dc CK. mobility goal CJ Source of G Code score: tinetti Observation - Observation Posture: Forward Head, Rounded Shoulders, Increased Thoracic Kyphosis, Decreased Lumbar Lordosis Gait - Gait Pattern General Gait Pattern Observation: Crouched Gait Gait Comments: pt amb independently with cane or walker. pt with occasional increased lat sway. General Range of Motion: WFL's Muscle Strength: WFL's Interventions - Exercise/Activities/Manual Therapy Exercises/Activities: n/a Manual Therapy: n/a HOME EXERCISE PROGRAM: pt given written HEP including AP, QS, hamstring stretch , LAQ, seated hip flex, isometric hip add. - Charges Timed Code Treatment Minutes: n/a Total Treatment Time: n/a Procedures billed for this date of service:: n/a Assessment Assessment: pt has met STG 2, LTG 2, 4 pt progressing toward remaining goals. pt continues with decreased posture, decreased balance at high risk of falls. pt did improve with tinetti score from 11/04 to 02/03 Patient Education: Home Exercise Program, Education of Plan of Care Rehab Potential: Good Short Term Goals Goal #1: pt transfer sit to/from stand independently Goal to be met by: 05/10/17 Progress towards Goal:: Partially Met (Requires assistance this week or patient is able to do, but x 3 attempts) Goal #2: pt amb in PT dept with rwx with no LOB with improved posture. Goal to be met by: 05/10/17 Progress towards Goal:: Met Goal #3: pt with improved dyn stand balance as noted by tinetti score Goal to be met by: 05/10/17 Progress towards Goal:: Progressing Goal #4: pt rate pain <5 with activity Goal to be met by: 05/10/17 Progress towards Goal:: Progressing (patient intermittently limited by bilateral knee pain) Show Card Writer Goals Goal #1: pt amb community distances with AD with no LOB SBA Goal to be met by: 05/31/17 Progress towards goal: Partially Met Goal #2: Improved strength BLE 4 to 4+/5 independent with HEP Goal to be met by: 05/31/17 Progress towards goal: Met Goal #3: Improved dyn stand balance as noted by tinetii score of 22/28 Goal to be met by: 05/31/17 Progress towards goal: Progressing Goal #4: pt rate pain <2 with activity Goal to be met by: 05/31/17 Progress towards goal: Met Plan Comments: pt request to be dc, feels she has met max rehab potential
== END 2017-06-06 23:59 ==
PROVIDERS: ATTEND Family Medicine
DX: M15.9 Polyosteoarthritis, unspecified (principal); R26.9 Unspecified abnormalities of gait and mobility; M79.671 Pain in right foot; M20.41 Other hammer toe(s) (acquired), right foot; M20.42 Other hammer toe(s) (acquired), left foot; M25.569 Pain in unspecified knee; M85.80 Other specified disorders of bone density and structure, unspecified site; L84 Corns and callosities; W19.XXXD Unspecified fall, subsequent encounter

== ENCOUNTER 2017-05-31 09:25 | Outpatient (CLI) | payer OTHER | END 2017-05-31 09:26 | disposition left against medical advice (07) | LOC: AMBL 09:25 | PROVIDERS: ATTEND Emergency Medicine | DX: R51 Headache (principal); W19.XXXA Unspecified fall, initial encounter ==

== ENCOUNTER 2017-07-08 13:11 | Outpatient (CLI) | END 2017-07-08 13:12 | disposition left against medical advice (07) | LOC: AMBL 13:11 | PROVIDERS: ATTEND Internal Medicine | DX: Z04.1 Encounter for examination and observation following transport accident (principal) ==

== ENCOUNTER 2017-10-02 13:30 | Emergency (ER) ==
[2017-10-02 13:36] VITALS: BP 145/72; TEMP 99.7; BMI 29.5
[2017-10-02] MEDS ORDERED: FLOMAX PO STA (13:55)
[2017-10-02] MEDS ORDERED: LEVAQUIN PO STA (14:39)
--- NOTE | 2017-10-02 14:46 | ED.PDOC ---
General ED Provider: Dr. HOLLY MACKEY-ER Chief Complaint: Urinary Problem Stated Complaint: i cant pee Time Seen by Physician: 13:35 Mode of Arrival: Wheelchair Information Source: Patient Exam Limitations: No limitations Primary Care Provider: IGNACIA SU Nursing and Triage Documentation Reviewed and Agree: Yes Does patient meet sepsis criteria?: No System Inflammatory Response Syndrome: Pulse >90 BPM Sepsis Protocol: For patient's 13 years and over: Temp is 96.8 and below OR 101 and greater Pulse >90 BPM Resp >20/minute Acutely Altered Mental Status Are patient's symptoms suggestive of a new infection, such as: -Pneumonia -Skin, Soft Tissue -Endocarditis -UTI -Bone, Joint Infection -Implantable Device -Acute Abdominal Infection -Wound Infection -Meningitis -Blood Stream Catheter Infection -Unknown Complaint Exam - Complaint/Exam Patient Complains of: Reports: Dysuria Onset/Duration: 24 hrs Symptoms Are: Still present Timing: Constant Initial Severity: Mild Current Severity: Mild Location of Pain: Reports: Discrete Character: Reports: Constant pressure, Dull, Cloudy urine Alleviating: Reports: None Associated Signs and Symptoms: Reports: Dysuria, Decreased urine output Differential Diagnoses: UTI Review of Systems - Review Of Systems Constitutional: Reports: No symptoms Eyes: Reports: No symptoms Ears, Nose, Mouth, Throat: Reports: No symptoms Respiratory: Reports: No symptoms Cardiac: Reports: No symptoms GI: Reports: No symptoms : Reports: Dysuria, Pain Musculoskeletal: Reports: No symptoms Skin: Reports: No symptoms Neurological: Reports: No symptoms Endocrine: Reports: No symptoms Hematologic/Lymphatic: Reports: No symptoms All Other Systems: Reviewed and Negative Past Medical History - Past Medical History Previously Healthy: No Endocrine: Reports: Unknown Cardiovascular: Reports: Hypertension Respiratory: Reports: Unknown Hematological: Reports: Unknown Gastrointestinal: Reports: GERD Genitourinary: Reports: UTI Neuro/Psych: Reports: Unknown Musculoskeletal: Reports: Arthritis Cancer: Reports: Unknown Last Menstrual Period: unknown Other Pertinent Past Medical History: CATARACT SURGERY BOTH EYES, FRACTURED BOTH FEET, RIGHT ANKLE FRACTURED - Surgical History General Surgical History: Reports: Hysterectomy, Appendectomy, Cholecystectomy, Orthopedic (FRACTURE BOTH FEET, RIGHT ANKLE FRACTURE), Other (CATARACT SURGERY BOTH EYES) - Family History Family History: Reports: Unknown - Social History Smoking Status: Former smoker Hx Substance Use: No Alcohol Screening: None Physical Exam - Physical Exam Appearance: Well-appearing, No pain distress, Well-nourished Eyes: HAYLEY, EOMI, Conjunctiva clear ENT: Ears normal, Nose normal, Oropharynx normal Neck: Supple Respiratory: Airway patent, Breath sounds clear, Breath sounds equal, Respirations nonlabored Cardiovascular: RRR, Pulses normal, No rub, No murmur GI/: Tender Musculoskeletal: Normal strength, ROM intact, No edema, No calf tenderness Skin: Warm, Dry, Normal color Neurological: Sensation intact, Motor intact, Reflexes intact, Cranial nerves intact, Alert, Oriented Critical Care Note - Critical Care Note Total Time (mins): 0 Course - Course Hematology/Chemistry: 10/02/17 14:21 10/02/17 14:21 Orders, Labs, Meds: Lab Review 10/02/17 10/02/17 10/02/17 14:12 14:21 14:21 WBC 6.71 RBC 4.12 L Hgb 11.9 L Hct 35.6 L MCV 86.4 MCH 28.9 MCHC 33.4 RDW Coeff of Jacqueline 13.4 Plt Count 267 Immature Gran % (Auto) 0.4 Neut % (Auto) 66.9 Lymph % (Auto) 16.4 Brantley % (Auto) 10.7 H Eos % (Auto) 5.2 Baso % (Auto) 0.4 Immature Gran # (Auto) 0.0 Neut # (Auto) 4.5 Lymph # (Auto) 1.1 Brantley # (Auto) 0.7 Eos # (Auto) 0.4 Baso # (Auto) 0.0 Sodium 132 L Potassium 4.7 Chloride 99 Carbon Dioxide 24 Anion Gap 13.7 BUN 29 H Creatinine 1.31 H Estimated GFR (MDRD) 38.00 BUN/Creatinine Ratio 22.13 Glucose 117 H Calcium 9.7 Urine Color Yellow Urine Clarity Cloudy Urine pH 6.5 Ur Specific [place] 1.010 Urine Protein 1+ Urine Glucose (UA) Negative Urine Ketones Negative Urine Blood 3+ Urine Nitrite Positive Urine Bilirubin Negative Urine Urobilinogen 0.2 Ur Leukocyte Esterase 1+ Urine Microscopic RBC 30-50 Urine Microscopic WBC 20-30 Ur Squamous Epith Cells Not present Urine Bacteria 3+ Orders Category Date Time Status Bladder Scan [ED BLADDER SCAN] .ONCE EMERGENCY 10/02/17 13:39 Active BMP [BASIC METABOLIC PANEL] Stat LAB 10/02/17 14:21 Completed CBC W/ AUTO DIFF Stat LAB 10/02/17 14:21 Completed URINALYSIS C & S IF INDICATED Stat LAB 10/02/17 14:12 Completed URINE CULTURE Stat LAB 10/02/17 14:12 Received Levofloxacin [Levaquin] MEDS 10/02/17 14:39 Discontinued 250 mg PO ONCE STA Tamsulosin HCl [Flomax] MEDS 10/02/17 13:55 Discontinued 0.4 mg PO ONCE STA Medications Discontinued Medications Generic Name Dose Route Start Last Admin Trade Name Aliya PRN Reason Stop Dose Admin Levofloxacin 250 mg 10/02/17 14:39 Levaquin PO 10/02/17 14:40 ONCE STA Tamsulosin HCl 0.4 mg 10/02/17 13:55 10/02/17 14:27 Flomax PO 10/02/17 13:56 0.4 mg ONCE STA Administration Vital Signs: Temp Pulse Resp BP Pulse Ox 10/02/17 13:31 99.7 F H 100 H 20 145/72 H 95 Departure - Departure Time of Disposition: 14:46 Disposition: HOME SELF-CARE Discharge Problem: Urinary retention, Cystitis Instructions: Urinary Tract Infection in Women (ED) Condition: Good Pt referred to PMD for follow-up: Yes IPMP verified?: No Additional Instructions: levaquin 250mg daily x 6dayss--keep f/u with dr su tomorrow Allergies/Adverse Reactions: Allergies adhesive Adverse Reaction (Verified 08/27/16 12:06) clarithromycin [From Biaxin] Adverse Reaction (Verified 08/27/16 12:06) Latex, Natural Rubber Adverse Reaction (Verified 08/27/16 12:06) sulfamethoxazole [From Bactrim] Adverse Reaction (Verified 10/02/17 13:37) trimethoprim [From Bactrim] Adverse Reaction (Verified 10/02/17 13:37) Home Medications: Ambulatory Orders Lisinopril 10 mg PO BID 05/02/13 Lorazepam 1 mg PO TID 05/02/13 Meclizine HCl [Antivert] 12.5 mg PO PRN PRN 05/02/13 Ondansetron HCl [Zofran] 4 mg PO Q6H PRN 05/02/13 Potassium Chloride [K-Dur] 10 meq PO DAILY #30 tablet.er 05/05/13 Spironolactone 25 mg PO DAILY #30 tablet 05/05/13 Calcium Carbonate [Calcium] 600 mg PO DAILY 05/27/14 Cholecalciferol (Vitamin D3) [Vitamin D3] 1,000 unit PO DAILY 05/27/14 Latanoprost [Xalatan] 1 drop OP BEDTIME 05/27/14 Multivitamin 1 cap PO DAILY 05/27/14 Pantoprazole Sodium [Protonix] 40 mg PO QDAC 05/27/14 Fluoxetine HCl [Prozac] 20 mg PO BEDTIME 08/27/16 Gabapentin 300 mg PO BEDTIME 08/27/16 Metoprolol Tartrate [Lopressor] 25 mg PO BID 08/27/16 Disposition Discussed With: Patient, Family
== END 2017-10-02 15:15 | disposition home or self-care (01) ==
LOC: ED 13:30
DX: N30.90 Cystitis, unspecified without hematuria (principal); R33.9 Retention of urine, unspecified
CPT/HCPCS: 36415; 80048; 81001; 85025; 87086; 87186; 99283

== ENCOUNTER 2017-10-08 08:02 | Emergency (ER) | payer OTHER ==
[2017-10-08 08:11] VITALS: TEMP 98; BMI 29.9
--- NOTE | 2017-10-08 08:19 | ED.PDOC ---
General ED Provider: Dr. JIGNA EWING Chief Complaint: Fall Stated Complaint: Patient is am 87 year old female who comes to the ER with fall while in the bathroom on to her knee. She states that she was hurring up to the bathroom. States she has dizziness and takes meclizine. Not sure she was dizzy this morning. She states that she was able to bear weight when she stood up. Time Seen by Physician: 08:10 Mode of Arrival: Ambulance Information Source: Patient, EMT Exam Limitations: No limitations Primary Care Provider: IGNACIA PATEL Nursing and Triage Documentation Reviewed and Agree: Yes Does patient meet sepsis criteria?: No System Inflammatory Response Syndrome: Not Applicable Sepsis Protocol: For patient's 13 years and over: Temp is 96.8 and below OR 101 and greater Pulse >90 BPM Resp >20/minute Acutely Altered Mental Status Are patient's symptoms suggestive of a new infection, such as: -Pneumonia -Skin, Soft Tissue -Endocarditis -UTI -Bone, Joint Infection -Implantable Device -Acute Abdominal Infection -Wound Infection -Meningitis -Blood Stream Catheter Infection -Unknown Musculoskeletal Complaint Exam - Knee Pain Complaint/Exam Mechanism of Injury: Reports: Trauma (right knee ) Onset/Duration: 1 hour Symptoms Are: Still present Onset of Pain: Reports: Immediate Initial Severity: Moderate Current Severity: Mild Location: Reports: Diffuse (right knee ) Character: Reports: Aching Alleviating: Reports: Rest Aggravating: Reports: Movement, Weight bearing Associated Signs and Symptoms: Reports: Swelling, Bruising Able to Bear Weight: Yes Related History: Reports: Similar episode (history of falls ) Septic Arthritis Risk Factors: Reports: None Gout Risk Factors: Reports: None Knee Findings: Present: Swelling, Ecchymosis Tenderness: Present: Pre-patellar Jace Test Positive: No Natalia Test Positive: No Limited Range of Motion: Absent: Active, Passive, Flexion, Extension, Degrees, Patellar apprehension Differential Diagnoses: Contusion, Closed Fracture, Sprain, Strain Review of Systems - Review Of Systems Constitutional: Reports: No symptoms Eyes: Reports: No symptoms Ears, Nose, Mouth, Throat: Reports: No symptoms Respiratory: Reports: No symptoms Cardiac: Reports: No symptoms GI: Reports: No symptoms : Reports: No symptoms Musculoskeletal: Reports: Joint pain Skin: Reports: Bruising Neurological: Reports: No symptoms Endocrine: Reports: No symptoms Hematologic/Lymphatic: Reports: No symptoms All Other Systems: Reviewed and Negative Past Medical History - Past Medical History Previously Healthy: No Endocrine: Reports: Unknown Cardiovascular: Reports: Hypertension Respiratory: Reports: Unknown Hematological: Reports: Unknown Gastrointestinal: Reports: GERD Genitourinary: Reports: UTI Neuro/Psych: Reports: Unknown Musculoskeletal: Reports: Arthritis Cancer: Reports: Unknown Last Menstrual Period: na Other Pertinent Past Medical History: CATARACT SURGERY BOTH EYES, FRACTURED BOTH FEET, RIGHT ANKLE FRACTURED - Surgical History General Surgical History: Reports: Hysterectomy, Appendectomy, Cholecystectomy, Orthopedic (FRACTURE BOTH FEET, RIGHT ANKLE FRACTURE), Other (CATARACT SURGERY BOTH EYES) - Family History Family History: Reports: Unknown - Social History Smoking Status: Former smoker Hx Substance Use: No Alcohol Screening: None - Immunizations Tetanus Shot up to Date: No Physical Exam - Physical Exam Appearance: Well-appearing Pain Distress: Mild Neck: Supple Respiratory: Airway patent, Breath sounds clear, Breath sounds equal, Respirations nonlabored Cardiovascular: RRR, Pulses normal, No rub, No murmur GI/: Soft, Nontender, No masses, Bowel sounds normal, No Organomegaly Musculoskeletal: Normal strength, ROM intact, No edema, No calf tenderness Skin: Warm, Dry Neurological: Sensation intact, Motor intact, Reflexes intact, Cranial nerves intact, Alert, Oriented Psychiatric: Anxious Interpretation - Radiology Interpretation Radiology Interpretation By: ED Physician Radiology Results: Negative (prosthesis right hip is intact) Exam Interpreted: Other (Pelvis ) Radiology Interpretation By: ED Physician Radiology Results: Negative (no fracture but severe arthritis noted.) Exam Interpreted: Other (right knee ) Critical Care Note - Critical Care Note Total Time (mins): 0 Course - Course Orders, Labs, Meds: Orders Category Date Time Status ED ORTHOSTATIC VITAL SIGNS .ONCE EMERGENCY 10/08/17 08:07 Active Acetaminophen [Tylenol] MEDS 10/08/17 08:33 Discontinued 500 mg PO ONCE STA KNEE, RIGHT 4 VIEWS Stat RADS 10/08/17 08:07 Completed PELVIS 1 OR 2 VIEWS Stat RADS 10/08/17 08:07 Completed Medications Discontinued Medications Generic Name Dose Route Start Last Admin Trade Name Freq PRN Reason Stop Dose Admin Acetaminophen 500 mg 10/08/17 08:33 10/08/17 08:45 Tylenol PO 10/08/17 08:34 500 mg ONCE STA Administration Vital Signs: Temp Pulse Resp BP Pulse Ox 10/08/17 08:19 95 H 146/62 H 09/01/18 08:18 97 H 131/62 10/08/17 08:05 98 F 97 H 16 13162 97 Departure - Departure Time of Disposition: 09:05 Disposition: HOME SELF-CARE Discharge Problem: Knee sprain Qualifiers: Encounter type: initial encounter Involved ligament of knee: unspecified ligament Laterality: right Qualified Code(s): S83.91XA - Sprain of unspecified site of right knee, initial encounter Contusion of knee Qualifiers: Encounter type: initial encounter Laterality: right Qualified Code(s): S80.01XA - Contusion of right knee, initial encounter Falls Qualifiers: Encounter type: initial encounter Qualified Code(s): W19.XXXA - Unspecified fall, initial encounter Instructions: Knee Sprain (ED), Contusion in Adults (ED) Condition: Stable Pt referred to PMD for follow-up: Yes IPMP verified?: No Additional Instructions: Take Tylenol as needed for pain may use ice to area for pain relief follow up with PCP in 3 days Allergies/Adverse Reactions: Allergies adhesive Adverse Reaction (Verified 10/08/17 08:18) clarithromycin [From Biaxin] Adverse Reaction (Verified 10/08/17 08:18) Latex, Natural Rubber Adverse Reaction (Verified 10/08/17 08:18) sulfamethoxazole [From Bactrim] Adverse Reaction (Verified 10/08/17 08:18) trimethoprim [From Bactrim] Adverse Reaction (Verified 10/08/17 08:18) Home Medications: Ambulatory Orders Lisinopril 10 mg PO BID 05/02/13 Lorazepam 1 mg PO TID 05/02/13 Meclizine HCl [Antivert] 12.5 mg PO PRN PRN 05/02/13 Ondansetron HCl [Zofran] 4 mg PO Q6H PRN 05/02/13 Disposition Discussed With: Patient
[2017-10-08 08:21] VITALS: BP 146/62
[2017-10-08] MEDS ORDERED: TYLENOL PO STA (08:33)
--- NOTE | 2017-10-08 09:10 | DI ---
EXAM: Right knee, four view. HISTORY: Right knee pain. Fall. COMPARISON: 03/11/2014 FINDINGS: AP , notch, sunrise and lateral views of the right knee. There are no acute or healing f ractures. There are no lytic or blastic lesions. There is no joint effusion. Soft tissues are norm al. Joint narrowing and osteophyte formation is seen in all three compartment, most pronounced in th e lateral compartment. IMPRESSION: 1. No acute fractures. 2. Tricompartmental osteoarthritis.
--- NOTE | 2017-10-08 09:11 | DI ---
EXAM: Pelvis. HISTORY: Pelvic pain. Fall. COMPARISON: None. FINDINGS: A single frontal view of the pelvis. There are postoperative changes of a total arthroplas ty on the right. The hardware appears intact and in good position. There are no acute or healing fra ctures. There are no lytic or blastic lesions. Disc narrowing is seen at L4-5 The soft tissues are normal. IMPRESSION: 1. No acute fractures. 2. Postoperative changes in the right hip.
== END 2017-10-08 09:39 | disposition home or self-care (01) ==
LOC: ED 08:02
DX: S83.91XA Sprain of unspecified site of right knee, initial encounter (principal); S80.01XA Contusion of right knee, initial encounter; W19.XXXA Unspecified fall, initial encounter; Z96.641 Presence of right artificial hip joint; S70.01XA Contusion of right hip, initial encounter
CPT/HCPCS: 99283

== ENCOUNTER 2018-04-26 18:48 | Outpatient (CLI) | payer OTHER ==
[2018-01-10 17:21] VITALS: BMI 28.5
== END 2018-04-26 19:14 | disposition short-term general hospital (02) ==
LOC: AMBL 18:48
PROVIDERS: ATTEND Family Medicine
DX: T14.90XA Injury, unspecified, initial encounter (principal); R45.4 Irritability and anger; W05.0XXA Fall from non-moving wheelchair, initial encounter; Y92.129 Unspecified place in nursing home as the place of occurrence of the external cause

== ENCOUNTER 2018-04-27 13:48 | Outpatient (CLI) | payer OTHER ==
[2018-01-10 17:21] VITALS: BMI 28.5
== END 2018-04-27 13:49 | disposition home or self-care (01) ==
LOC: NONPT 13:48
PROVIDERS: ATTEND Family Medicine
DX: R41.82 Altered mental status, unspecified (principal); F22 Delusional disorders
CPT/HCPCS: 80053; 85025

== ENCOUNTER 2018-04-28 09:31 | Outpatient (CLI) | payer OTHER ==
[2018-01-10 17:21] VITALS: BMI 28.5
== END 2018-04-28 09:32 | disposition home or self-care (01) ==
LOC: NONPT 09:31
PROVIDERS: ATTEND Family Medicine
DX: N39.0 Urinary tract infection, site not specified (principal)
CPT/HCPCS: 81001; 87086; 87186

== ENCOUNTER 2018-07-03 18:27 | Outpatient (CLI) ==
[2018-01-10 17:21] VITALS: BMI 28.5
== END 2018-07-03 18:48 | disposition short-term general hospital (02) ==
LOC: AMBL 18:27
PROVIDERS: ATTEND Internal Medicine
DX: M25.551 Pain in right hip (principal); W07.XXXA Fall from chair, initial encounter

== ENCOUNTER 2018-07-07 13:23 | Outpatient (CLI) | payer OTHER ==
[2018-01-10 17:21] VITALS: BMI 28.5
--- NOTE | 2018-07-10 12:44 | HOLTER ---
PATIENT INFORMATION AND COMMENTS Attending Physician: DR. HOLLY MACKEY/IGNACIA PATEL Indications: VAGAL EPISODE __ Patient Medications: ALDACTONE, ATIVAN, CALCIUM/VITAMIN D, POTASSIUM CHLORIDE, LASIX, LISINOPRIL, METOPROLOL, NEURONTIN, PROTONIX, PROZAC, TRAMADOL __ Pre-procedure Summary: Protocol: Standard Heart Rate Started: 07/07/18 1343 Minimum: 60 BPM Weight: 170 LBS Ended: 07/08/18 1343 Maximum: 110 BPM Height: 64" Duration: 24 HOURS Average: 86 BPM _ INTERPRETATIONS/OBSERVATIONS: 1. BASIC RHYTHM: SINUS, RATE 60 BPM TO 110 BPM, AVERAGE 70 BPM 2. RARE TO INFREQUENT ISOLATED PAC/PVC'S 3. NO PAUSES GREATER THAN 2.[address] 4. NO ST-T WAVE CHANGES FROM BASELINE 5. ACTIVITY LOG --BLANK MTDD
== END 2018-07-07 13:24 | disposition home or self-care (01) ==
LOC: CAR 13:23
PROVIDERS: ATTEND Family Medicine
DX: R55 Syncope and collapse (principal)
CPT/HCPCS: 93227

== ENCOUNTER 2018-10-06 08:59 | Outpatient (CLI) | payer OTHER ==
[2018-01-10 17:21] VITALS: BMI 28.5
== END 2018-10-06 09:00 | disposition home or self-care (01) ==
LOC: NONPT 08:59
PROVIDERS: ATTEND Family Medicine
DX: R41.0 Disorientation, unspecified (principal); R82.90 Unspecified abnormal findings in urine
CPT/HCPCS: 81001; 87086

== ENCOUNTER 2018-10-10 11:37 | Outpatient (CLI) ==
[2018-01-10 17:21] VITALS: BMI 28.5
== END 2018-10-10 11:38 | disposition home or self-care (01) ==
LOC: NONPT 11:37
PROVIDERS: ATTEND Family Medicine
DX: R30.0 Dysuria (principal); R39.15 Urgency of urination
CPT/HCPCS: 81001; 87086; 87186